=== PATIENT | female | born 1970 | race Caucasian/White ===

== ENCOUNTER 2016-12-26 01:35 | Emergency (ER) | payer MEDICAID ==
[~2016-12-26] VITALS: Ht 170.2 cm; Wt 125.6 kg
[2016-12-26 01:40] VITALS: BP 130/74
--- NOTE | 2016-12-26 02:13 | NUR ---
PT. AMBULATES TO ED BED 8
--- NOTE | 2016-12-26 02:24 | NUR ---
46Y/F PATIENT PRESENTS TO ED WITH C/O BACK PAIN X 5 DAYS . DENIES N/V/D; SKIN IS PINK/WARM/DRY, BLE NON-PITTING EDEMA; AAOX4 WITH EVEN AND STEADY GAIT; LUNGS CLEAR BL; HR EVEN AND REGULAR; PT DENIES ANY FEVER, CP, SOB, OR COUGH AT THIS TIME; PATIENT STATES PAIN OF 8/10 AT THIS TIME; VSS; PATIENT POSITIONED FOR COMFORT; HOB ELEVATED; BEDRAILS UP X2; BED DOWN. ER MD MADE AWARE OF PT STATUS.
--- NOTE | 2016-12-26 02:57 | NUR ---
PT AWAITING ER MD ROMANO.
[2016-12-26] MEDS ORDERED: ceFAZolin 1,000 MG VIAL IM ONE (04:00)
[2016-12-26] MEDS ORDERED: KETOROLAC 60 MG/2 ML VIAL IM ONE (04:00)
--- NOTE | 2016-12-26 04:00 | NUR ---
Patient being evaluated by physician at bedside.
[2016-12-26 04:34] VITALS: BP 127/65
--- NOTE | 2016-12-26 04:34 | NUR ---
Patient discharged with v/s stable. Written and verbal after care instructions given and explained. Patient alert, oriented and verbalized understanding of instructions. Ambulatory with steady gait. All questions addressed prior to discharge. ID band removed. Patient advised to follow up with PMD. Rx of TRAMADOL 50 MG, CIPRO 500 MG, KEFLEX 500 MG given. Patient educated on indication of medication including possible reaction and side effects. Opportunity to ask questions provided and answered.
== END 2016-12-26 04:34 | disposition home or self-care (01) ==
LOC: MED 01:53
DX: L03.116 Cellulitis of left lower limb (principal); L03.115 Cellulitis of right lower limb; G89.29 Other chronic pain; M54.5 Low back pain; R03.0 Elevated blood-pressure reading, without diagnosis of hypertension
CPT/HCPCS: 81002; 81025; 96372; 99284; J0690; J1885

== ENCOUNTER 2017-01-19 00:01 | Observation (INO) | payer MEDICAID ==
[~2017-01-19] VITALS: Ht 165.1 cm; Wt 121.1 kg
[~2017-01-19 00:01] MED LIST: ASPI81CT95 PO; ATOR20TA40 PO; CLIN300C2 PO
[2017-01-19 00:21] VITALS: BP 148/66
[2017-01-19] MEDS ORDERED: ATOR20TA PO (00:28)
[2017-01-19] MEDS ORDERED: ATI.5 PO (00:28)
[2017-01-19] MEDS ORDERED: CLIN300C2 PO (00:28)
--- NOTE | 2017-01-19 00:54 | NUR ---
PT TAKEN TO BED 7
--- NOTE | 2017-01-19 00:55 | NUR ---
47 Y/O F W/C/O BILATERAL LEG PAIN X 2 WKS. PT STATES WAS RECENTLY discharged from THIS HOSPITAL ON 01/13/17 for BLE cellulitis. PT STATES INFECTION GETTING WORSE. NO OTHER S/S OF DISTRESS NOTED AT THE MOMENT. ER MD MADE AWARE. hx anxiety, high cholesterol
[2017-01-19] MEDS ORDERED: NACL 0.9% 1,000 ML IV SCH (00:59)
--- NOTE | 2017-01-19 00:59 | NUR ---
Dr. Rosario evaluating patient at bedside.
[2017-01-19] MEDS: VANCOMYCIN 1,000 MG in DEXTROSE 5% 250 ML IV ONE ×2 (01:00→01:42)
[2017-01-19] MEDS ORDERED: PIPERACILLIN/TAZOBACTAM 3.375 GM in DEXTROSE 5% 50 ML IV ONE (01:05)
[2017-01-19 01:21] LABS: BASOPHILS # (AUTO) 0.4 K/uL (0.00-0.22); BASOPHILS % (AUTO) 4.2 % (0.0-2.0); EOSINOPHILS # (AUTO) 0.3 K/uL (0-0.4); EOSINOPHILS % (AUTO) 3.7 % (0.0-4.0); HEMATOCRIT 34.3 % (36-48); HEMOGLOBIN 10.7 g/dL (12.0-16.0); LYMPHOCYTES # (AUTO) 2.1 K/uL (2.5-16.5); MEAN CORPUSCULAR HEMOGLOBIN 26 pg (27-31); MEAN CORPUSCULAR HGB CONC 31 g/dL (33-37); MEAN CORPUSCULAR VOLUME 84 fL (80-94); MONOCYTES # (AUTO) 0.7 K/uL (0.8-1.0); NEUTROPHILS # (AUTO) 5.1 K/uL (1.8-7.7); NEUTROPHILS % (AUTO) 59.1 % (42.2-75.2); PLATELET COUNT (AUTO) 378 K/uL (140-450); RED CELL DISTRIBUTION WIDTH 14.9 % (11.6-13.7); WHITE BLOOD COUNT (AUTO) 8.6 K/uL (4.8-10.8)
[2017-01-19 01:31] LABS: ANION GAP 10.3 (8-16); CARBON DIOXIDE 27.5 mmol/L (21-32); POTASSIUM 3.8 mmol/L (3.5-5.1)
[2017-01-19] MEDS ORDERED: PIPERACILLIN/TAZOBACTAM 3.375 GM VIAL IV ONE ×2 (01:31→01:39)
[2017-01-19] MEDS ORDERED: VANCOMYCIN 1,000 MG VIAL ONE (01:32)
[2017-01-19 01:47] LABS: ALBUMIN 3.3 g/dL (3.4-5.0); TOTAL BILIRUBIN 0.1 mg/dL (0.0-1.0)
[2017-01-19 01:48] LABS: PROTHROMBIN TIME 10.1 secs (10.8-13.4)
[2017-01-19] MEDS ORDERED: MORPHINE SULFATE 2 MG/ML SYR IVP PRN (02:10)
[2017-01-19] MEDS ORDERED: ONDANSETRON 4 MG/2 ML VIAL IM/IVP PRN (02:10)
[2017-01-19] MEDS ORDERED: DOCUSATE SODIUM 100 MG GELCAP PO PRN (02:10)
[2017-01-19] MEDS ORDERED: ACETAMINOPHEN 325 MG TAB PO PRN (02:10)
[2017-01-19] MEDS ORDERED: HYDROcodone/APAP 7.5/325 MG 1 TAB PO PRN (02:10)
[2017-01-19 02:23] LABS: MAGNESIUM 1.8 mg/dL (1.8-2.4); PHOSPHORUS 3.5 mg/dL (2.5-4.9)
[2017-01-19] MEDS ORDERED: VANCOMYCIN HCL 1,000 MG in DEXTROSE 5% 250 ML IV SCH (02:35)
--- NOTE | 2017-01-19 02:35 | NUR ---
PT RESTING IN BED, NO S/S OF DISTRESS NOTED AT THE MOMENT.
--- NOTE | 2017-01-19 02:40 | NUR ---
Patient will be admitted to care of DR KING. Admited to TELEMETRY. Will go to room 110B. Belongings list completed. Report to MILLICENT MARI.
--- NOTE | 2017-01-19 02:49 | NUR ---
PT UNABLE TO PROVIDE URINE IN ER, FLOOR NURSE NOTIFIED.
--- NOTE | 2017-01-19 02:51 | NUR ---
PT TRASFERED TO FLOOR VIA GURNEY, ACCOMPANIED BY RN AND EMT. NO S/S OF DISTRESS NOTED DURING TRASFER.
--- NOTE | 2017-01-19 03:07 | NUR ---
PT ARRIVED ON UNIT VIA [facility]AY ACCOMPANIED BY TWO ER NURSES. PT WAS ABLE TO AMBULATE FROM GURNEY TO BED WITH STEADY GAIT. ORIENTED PT TO ROOM, RESTROOM, LIGHTS, TV, PHONE, CALL LIGHT. PT IS AAOX4, ON ROOM AIR, WITH 20G IV TO THE RIGHT FOREARM INFUSING VANCOMYCIN AT 165ML/HR. BLE ERYTHEMA OTHERWISE SKIN IS INTACT. PT IS STABLE, VITAL SIGNS WNL. DISCUSSED PLAN OF CARE WITH PT, PT VERBALIZED UNDERSTANDING. NO SIGNS OF DISTRESS NOTED. BED IN LOW POSITION, CALL LIGHT WITHIN REACH. WILL CONTINUE TO MONITOR.
[2017-01-19] MEDS ORDERED: KETOROLAC 15 MG/ML VIAL IVP PRN (03:25)
[2017-01-19 03:30] VITALS: BP 132/74
--- NOTE | 2017-01-19 04:25 | NUR ---
VANCOMYCIN INFUSION ENDED. REPLACED WITH ORDERED NS @160ML/HR. PT IN STABLE CONDITION, BED IN LOW POSITION, CALL LIGHT WITHIN REACH. WILL CONTINUE TO MONITOR.
[2017-01-19] MEDS: NACL 0.9% 1,000 ML IV SCH ×2 (05:00→08:21)
[2017-01-19] MEDS ORDERED: PIPER/TAZO 3.375GM/D5W PREMIX 50 ML IV SCH (05:00)
--- NOTE | 2017-01-19 06:30 | NUR ---
PT RESTING, IN STABLE CONDITION. BED IN LOW POSITION, CALL LIGHT WITHIN REACH. WILL CONTINUE TO MONITOR.
[2017-01-19 06:44] LABS: BASOPHILS # (AUTO) 0.3 K/uL (0.00-0.22); BASOPHILS % (AUTO) 3.9 % (0.0-2.0); EOSINOPHILS # (AUTO) 0.3 K/uL (0-0.4); EOSINOPHILS % (AUTO) 4.3 % (0.0-4.0); HEMOGLOBIN 10.1 g/dL (12.0-16.0); LYMPHOCYTES # (AUTO) 2.2 K/uL (2.5-16.5); LYMPHOCYTES % (AUTO) 31.1 % (20.5-51.1); MEAN CORPUSCULAR HEMOGLOBIN 26 pg (27-31); MEAN CORPUSCULAR HGB CONC 32 g/dL (33-37); MEAN CORPUSCULAR VOLUME 83 fL (80-94); MONOCYTES # (AUTO) 0.4 K/uL (0.8-1.0); MONOCYTES % (AUTO) 5.8 % (1.7-9.3); NEUTROPHILS # (AUTO) 3.8 K/uL (1.8-7.7); NEUTROPHILS % (AUTO) 54.9 % (42.2-75.2); PLATELET COUNT (AUTO) 364 K/uL (140-450); RED BLOOD CELL COUNT(AUTO) 3.85 MIL/uL (4.20-5.40); RED CELL DISTRIBUTION WIDTH 14.4 % (11.6-13.7)
[2017-01-19 06:46] LABS: ANION GAP 12.9 (8-16); CREATININE 0.8 mg/dL (0.6-1.3); POTASSIUM 3.9 mmol/L (3.5-5.1)
--- NOTE | 2017-01-19 07:20 | NUR ---
RECEIVED REPORT FROM NIGHT NURSE, PT IS AAOX4, ON ROOM AIR, IV TO RIGHT FA 20G INFUSING WELL, SKIN INTACT WITH BILATERAL LEG CELLULITIS, INITIAL ASSESSMENT COMPLETED, REVIEW PLAN OF CARE WITH PT, PT VERBALIZED UNDERSTANDING, ALL SAFETY PRECAUTIONS MET, CALL LIGHT WITHIN REACH, WILL CONTINUE TO MONITOR.
[2017-01-19 08:00] VITALS: BP 109/60
[2017-01-19] MEDS ORDERED: FERROUS SULFATE 325 MG TABEC PO SCH (08:00)
--- NOTE | 2017-01-19 08:14 | NUR ---
PATIENT HAS BEEN SCREENED AND CATEGORIZED HIGH NUTRITION RISK. PATIENT WILL BE SEEN WITHIN 1-2 DAYS OF ADMISSION. 01/19/17-01/20/[address]
--- NOTE | 2017-01-19 08:33 | NUR ---
DUE MEDICATIONS GIVEN, PT TOLERATED WELL, PT CURRENTLY SITTING ON CHAIR. ALL NEEDS MET. CALL LIGHT WITHIN REACH. WILL CONTINUE TO MONITOR.
[2017-01-19] MEDS ORDERED: ASCORBIC ACID 500 MG TAB PO SCH (09:00)
[2017-01-19] MEDS ORDERED: ATORVASTATIN 20 MG TAB PO SCH (09:00)
[2017-01-19] MEDS ORDERED: NICOTINE TRANSD SYS 14 MG/24 HR PATCH TD SCH (09:00)
[2017-01-19] MEDS ORDERED: ASPIRIN 81 MG TAB.CHEW PO SCH (09:00)
--- NOTE | 2017-01-19 09:57 | NUR ---
01/19/17 RD INITIAL ASSESSMENT COMPLETED PLEASE REFER TO NUTRITION ASSESSMENT UNDER CARE ACTIVITY FOR ESTIMATED NUTRITIONAL NEEDS. 1. CONTINUE 60G CONSISTENT CARBOHYDRATE DIET 2. PROVIDE NUTRITION THERAPY EDUCATION NEEDED 3. RD TO FOLLOW-UP 3-5 DAYS, MODERATE RISK [address]ERARD[address] RD
--- NOTE | 2017-01-19 10:25 | NUR ---
DISCUSSED DISCHARGE PLAN WITH PT, PT VERBALIZED UNDERSTANDING.
--- NOTE | 2017-01-19 10:50 | NUR ---
IVF DISCONTINUE, PT TO BE DISCHARGE.
--- NOTE | 2017-01-19 11:00 | NUR ---
PT SIGNED ALL DISCHARGE PAPER WORK, DISCHARGE EDUCATION GIVEN, PT VERBALIZED UNDERSTANDING, FOLLOW UP INFORMATION GIVEN, ALL PERSONAL BELONGINGS WITH PT, IV REMOVED TIP INTACT.
--- NOTE | 2017-01-19 11:05 | NUR ---
PT WAS WALKED OUT TO FRONT LOBBY IN STABLE CONDITION.
== END 2017-01-19 11:05 | disposition home or self-care (01) ==
LOC: MED 00:01 → MTU 02:22
PROVIDERS: ADMIT Student in an Organized Health Care Education/Training Program; ATTEND Student in an Organized Health Care Education/Training Program
DX: L03.116 Cellulitis of left lower limb (principal); L03.115 Cellulitis of right lower limb; F41.9 Anxiety disorder, unspecified; E11.51 Type 2 diabetes mellitus with diabetic peripheral angiopathy without gangrene; E46 Unspecified protein-calorie malnutrition; E66.01 Morbid (severe) obesity due to excess calories; Z68.41 Body mass index [BMI] 40.0-44.9, adult; D64.9 Anemia, unspecified; Z98.890 Other specified postprocedural states
CPT/HCPCS: 36415; 80048; 80053; 82150; 83605; 83690; 83735; 83880; 84100; 85025; 85610; 85730; 87040; 96361; 96365; 96367; 96375; 99285; G0378; J2270; J2543; J3370; J7030; J7060

== ENCOUNTER 2018-04-16 18:55 | Emergency (ER) | payer MEDICAID, OTHER ==
[~2018-04-16] VITALS: Ht 170.2 cm; Wt 130.2 kg
[~2018-04-16 18:55] MED LIST changes: +ATI.5 PO; +ATOR20TA PO; -ATOR20TA40 PO
[2018-04-16 18:58] VITALS: BP 150/98
--- NOTE | 2018-04-16 19:07 | NUR ---
PT AMB TO BED2
--- NOTE | 2018-04-16 19:20 | NUR ---
came in with c/o rt side toothache, with cheek swelling, headache for 3 days.
--- NOTE | 2018-04-16 22:01 | NUR ---
Dr. Marcano evaluating patient at bedside.
[2018-04-16] MEDS ORDERED: cefTRIAXone 1,000 MG in LIDOCAINE MPF 1% - 5 mL VIAL 2.1 ML IM ONE (22:15)
[2018-04-16] MEDS ORDERED: KETOROLAC 60 MG/2 ML VIAL IM ONE (22:15)
--- NOTE | 2018-04-16 22:36 | NUR ---
medicated as per ermd order, patient tolerated well.
[2018-04-16 23:05] VITALS: BP 138/90
--- NOTE | 2018-04-16 23:05 | NUR ---
Patient discharged with v/s stable. Written and verbal after care instructions given and explained. Patient alert, oriented and verbalized understanding of instructions. Ambulatory with steady gait. All questions addressed prior to discharge. ID band removed. Patient advised to follow up with PMD. Rx of clindamycin 300mg, tramadol 50 mg, ibuprofen 800mg given. Patient educated on indication of medication including possible reaction and side effects. Opportunity to ask questions provided and answered.
== END 2018-04-16 23:05 | disposition home or self-care (01) ==
LOC: MED 18:55
DX: K04.7 Periapical abscess without sinus (principal); F41.9 Anxiety disorder, unspecified; Z90.49 Acquired absence of other specified parts of digestive tract; Z79.899 Other long term (current) drug therapy; F17.200 Nicotine dependence, unspecified, uncomplicated
CPT/HCPCS: 96372; 99283; J0696; J1885; J2001

== ENCOUNTER 2020-11-11 07:00 | Emergency (ER) | payer OTHER ==
[~2020-11-11] VITALS: Ht 165.1 cm; Wt 121.1 kg
[2020-11-11 07:10] VITALS: BP 143/73
--- NOTE | 2020-11-11 07:18 | NUR ---
Patient ambulated to bed 07 with steady/even gait.
--- NOTE | 2020-11-11 07:22 | NUR ---
DR COATES AT BEDSIDE EVALUATING PATIENT
--- NOTE | 2020-11-11 07:25 | NUR ---
50 y/o F BIB self from home with c/c generalized weakness, fatigue x 1 month. Patient A&Ox4, ambulatory, reports lightheadness, fatigue, generalized weakness for 1 month that worsen over the weekend. Patient also reports insomnia and bilateral tingling to hands and wrist. Patient also states lower leg pain. Patient reports 7/10, sharp/constant, non-radiating pain to bilateral palms. Patient denies any medications prior to arrival. Patient denies SOB, chest pain, N/V/D. equipment monitor phototypesetting in place. Bed locked in lowest position, side rails x 1. PMH: Anxiety, depression, DM2, anemia Meds: Zoloft NKA Sx: Denies
--- NOTE | 2020-11-11 07:31 | NUR ---
Patient ambulated to restroom for urine sample.
--- NOTE | 2020-11-11 07:35 | NUR ---
EMT at bedside for EKG
--- NOTE | 2020-11-11 07:41 | NUR ---
truck service technician at bedside.
--- NOTE | 2020-11-11 07:56 | NUR ---
Blood sample collected, walked to lab and handed to CPT Larry.
--- NOTE | 2020-11-11 08:00 | NUR ---
Vito garza in [facility] - 11/11/20 at 0827 by DASHAWN At bedside with Dr. Oakley for stool sample.
[2020-11-11 08:04] LABS: BASOPHILS % (AUTO) 0.5 % (0.0-2.0); EOSINOPHILS # (AUTO) 0.2 K/uL (0-0.4); EOSINOPHILS % (AUTO) 2.9 % (0.0-4.0); HEMATOCRIT 38.4 % (36-48); HEMOGLOBIN 12.7 g/dL (12.0-16.0); LYMPHOCYTES # (AUTO) 1.8 K/uL (2.5-16.5); LYMPHOCYTES % (AUTO) 26.7 % (20.5-51.1); MEAN CORPUSCULAR HEMOGLOBIN 29 pg (27-31); MEAN CORPUSCULAR HGB CONC 33 g/dL (33-37); MEAN CORPUSCULAR VOLUME 86.8 fL (80-94); MONOCYTES # (AUTO) 0.5 K/uL (0.8-1.0); MONOCYTES % (AUTO) 7.1 % (1.7-9.3); NEUTROPHILS # (AUTO) 4.3 K/uL (1.8-7.7); NEUTROPHILS % (AUTO) 62.8 % (42.2-75.2); PLATELET COUNT (AUTO) 312 K/uL (140-450); RED BLOOD CELL COUNT(AUTO) 4.43 MIL/uL (4.20-5.40); RED CELL DISTRIBUTION WIDTH 14.7 % (11.6-13.7); WHITE BLOOD COUNT (AUTO) 6.8 K/uL (4.8-10.8)
[2020-11-11 08:26] LABS: ALBUMIN 3.6 g/dL (3.4-5.0); ANION GAP 13.5 (8-16); CARBON DIOXIDE 25.4 mmol/L (21-32); CREATININE 0.9 mg/dL (0.6-1.3); POTASSIUM 3.9 mmol/L (3.5-5.1); TOTAL BILIRUBIN 0.2 mg/dL (0.0-1.0)
--- NOTE | 2020-11-11 08:37 | NUR ---
Patient in semi-fowlers position with both eyes closed. pvc monitor in place. VSS; respirations even/unlabored. Bed locked in lowest position, side rails x 1, call light in reach.
[2020-11-11] MEDS ORDERED: KETOROLAC 60 MG/2 ML VIAL IM ONE ×2 (09:20→09:22)
--- NOTE | 2020-11-11 09:28 | NUR ---
Patient presents awake laying on left side in position of comfort. environmental monitoring specialist in place. VSS; respirations even/unlabored. Bed locked in lowest position, side rails x 1, call light in reach.
--- NOTE | 2020-11-11 09:41 | NUR ---
Patient reports pain remains a 11/09, Dr. Oakley made aware.
[2020-11-11] MEDS ORDERED: HYDROcodone/APAP 5/325 MG 1 TAB TAB PO ONE (09:45)
[2020-11-11] MEDS ORDERED: NAPR-54 PO ×2 (10:15→10:41)
[2020-11-11] MEDS ORDERED: METF500T PO ×2 (10:17→10:41)
--- NOTE | 2020-11-11 10:30 | NUR ---
Patient states positive relief after [place] 5-325 PO. Rates pain 2/10.
[2020-11-11 10:33] VITALS: BP 116/68
--- NOTE | 2020-11-11 10:33 | NUR ---
Patient discharged with v/s stable. Written and verbal after care instructions given and explained. Patient alert, oriented and verbalized understanding of instructions. Ambulatory with steady gait. All questions addressed prior to discharge. ID band removed. Patient advised to follow up with PMD. Rx of Naproxen, Metformin given. Patient educated on indication of medication including possible reaction and side effects. Opportunity to ask questions provided and answered.
--- NOTE | 2020-11-11 10:36 | NUR ---
Vito garza in [facility] - 11/11/20 at 1036 by DASHAWN Patient states positive relief after [place] 3-325 PO. Rates pain 06/12.
== END 2020-11-11 10:33 | disposition home or self-care (01) ==
LOC: MED 07:00
DX: R73.9 Hyperglycemia, unspecified (principal); R53.1 Weakness; F17.210 Nicotine dependence, cigarettes, uncomplicated; Z90.49 Acquired absence of other specified parts of digestive tract; Z79.899 Other long term (current) drug therapy; Z79.82 Long term (current) use of aspirin
CPT/HCPCS: 36415; 71045; 80053; 81002; 81025; 83690; 84484; 85025; 93005; 96372; 99285; J1885